=== PATIENT | male | born 1985 | race African-American/Black ===

== ENCOUNTER 2017-03-13 17:28 | Emergency (ER) | payer MEDICARE, OTHER ==
[~2017-03-13] VITALS: Ht 172.7 cm; Wt 104.3 kg
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
[~2017-03-13 17:28] MED LIST: CLEOCIN PO; DICLOFENAC PO; INDOCIN50 MG PO; NAPROSYN500 MG PO; ROBAXIN500 MG PO
== END 2017-03-13 19:30 | disposition home or self-care (01) ==
LOC: SED 17:28
DX: S16.1XXA Strain of muscle, fascia and tendon at neck level, initial encounter (principal); S00.93XA Contusion of unspecified part of head, initial encounter; S60.222A Contusion of left hand, initial encounter; J45.909 Unspecified asthma, uncomplicated; Z88.5 Allergy status to narcotic agent; Y04.0XXA Assault by unarmed brawl or fight, initial encounter; Y92.830 Public park as the place of occurrence of the external cause
CPT/HCPCS: 29260; 70450; 72040; 72072; 72100; 73130; 99284